=== PATIENT | male | born 1980 | race Caucasian/White ===

== ENCOUNTER → 2016-12-07 | Outpatient (CLI) | payer OTHER ==
[~2016-12-07] MED LIST: CIPRO500 MG PO; FLEXERIL10 MG PO; HYDROCODONE BIT1 T11 PO; LYRICA100 MG PO; LYRICA50 MG PO; MOTRIN800 MG PO; Motrin,Rufen800 MG PO; NORCO 325 MG-51 TAB PO; NORCO 7.5-3251 EACH PO; PHENERGAN W/DM120 ML PO; PREDNICOT10 MG PO; PREDNISONE10 MG PO; PROAIR HFA0.09 MG/AC INH; VALIUM5 MG PO; VIBRAMYCIN100 MG PO; VICODIN ES 7501 TAB PO
== END | disposition home or self-care (01) ==
LOC: RAD 14:58
DX: Z98.1 Arthrodesis status (principal)

== ENCOUNTER → 2017-03-28 | Outpatient (CLI) | payer OTHER | END | disposition home or self-care (01) | LOC: RAD 01:20 | DX: M84.68XS Pathological fracture in other disease, other site, sequela (principal); Q89.8 Other specified congenital malformations; G35 Multiple sclerosis; Z96.643 Presence of artificial hip joint, bilateral ==

== ENCOUNTER → 2018-11-09 | Day surgery (SDC) | payer MEDICARE, MEDICAID ==
[~2018-11-09] VITALS: Ht 167.6 cm; Wt 70.3 kg
[~2018-11-09] MED LIST changes: +ADDERALL15 MG PO; +BRIMONIDINE TART5 ML OPH; +LAMICTAL100 MG PO; +XALATAN 0.005%2.5 ML INTRAOC
--- NOTE | ~2018-11-09 | PROC NOTE ---
[place], [place] PROCEDURE NOTE NAME: CRISTOBAL OJEDA [facility] #: [id number] UNIT #: [id number] ROOM: DOCTOR: ZACHARY AMBROSE MD BIRTHDATE: [birth year] DOS: 11/09/2018 PREOPERATIVE DIAGNOSIS: Right parietal scalp mass. POSTOPERATIVE DIAGNOSIS: Right parietal scalp mass. PROCEDURE: Excision of right parietal scalp mass. SURGEON: Zachary Ambrose M.D. MUSICIAN INSTRUMENTAL: [place]. ANESTHESIA: Local (2 mL of 2% lidocaine with epinephrine). INDICATIONS: This is a 38-year-old gentleman with a history of a right parietal scalp mass, is here for the above-mentioned procedure. The procedure and its complications were explained to the patient in detail. Complications that were discussed included but were not limited to bleeding, infection, hematoma/seroma/abscess formation and prolonged pain. He agreed to proceed. DESCRIPTION OF PROCEDURE: After identifying the patient, the patient was brought to the operating suite and placed in supine position. After timeout was done in the usual fashion, the parts were painted and draped in the usual sterile fashion. Local anesthesia was infiltrated in the marked incision. Incision was made and deepened in layers. The cyst was excised in its entirety with the help of blunt and sharp dissection and sent for histopathological diagnosis. Thereafter, hemostasis was confirmed, the subcutaneous tissue was approximated with the help of 3-0 Vicryl in an interrupted fashion and the edges of the skin were approximated with the help of 4-0 Vicryl in a subcuticular running fashion. Dressing was placed. The patient tolerated procedure well. There were no complications. Dr. Zachary Ambrose, the attending surgeon, was present throughout the operating case. Zachary Ambrose MD CM:PROCNOTE:PROCEDURE NOTE [id number] ZACHARY AMBROSE MD
[2018-11-09 08:28] VITALS: BP 119/68
[2018-11-09 08:40] VITALS: BP 112/78
[2018-11-09 08:46] VITALS: BP 112/81
[2018-11-09 08:51] VITALS: BP 121/87
[2018-11-09 08:56] VITALS: BP 112/75
== END | disposition home or self-care (01) ==
LOC: SDC 11-07 10:15
DX: L72.12 Trichodermal cyst (principal); G35 Multiple sclerosis; Q89.8 Other specified congenital malformations; F17.210 Nicotine dependence, cigarettes, uncomplicated; F12.90 Cannabis use, unspecified, uncomplicated; Z88.0 Allergy status to penicillin; Z79.1 Long term (current) use of non-steroidal anti-inflammatories (NSAID); Z79.899 Other long term (current) drug therapy; Z96.643 Presence of artificial hip joint, bilateral; Z98.890 Other specified postprocedural states; Z83.3 Family history of diabetes mellitus; Z82.49 Family history of ischemic heart disease and other diseases of the circulatory system

== ENCOUNTER 2019-01-23 17:01 | Emergency (ER) | payer MEDICARE, MEDICAID ==
[~2019-01-23] VITALS: Ht 170.1 cm; Wt 65.8 kg
== END 2019-01-23 18:27 | disposition home or self-care (01) ==
LOC: ED 17:01
DX: H57.12 Ocular pain, left eye (principal); F17.200 Nicotine dependence, unspecified, uncomplicated; Z96.641 Presence of right artificial hip joint; Z79.899 Other long term (current) drug therapy; Z88.0 Allergy status to penicillin

== ENCOUNTER → 2019-03-05 | Outpatient (CLI) | payer MEDICARE, MEDICAID ==
--- NOTE | ~2019-03-05 | EKG ---
[place], [place] ELECTROCARDIOGRAM REPORT NAME: CRISTOBAL OJEDA UNIT #: [id number] ROOM: DOCTOR: MANJEET DRAFT REPORT BIRTHDATE: [birth year] [facility] Test Date: 2019-03-05 Test Time: 15:29:53 Pat Name: CRISTOBAL OJEDA Department: Room: Gender: M Focus Puller: SS RESP : 1980 Requested By: YU PAINTING Order Number: [id number] Reading MD: Sg Merchant MD Measurements Intervals [place] Rate: 87 P: 79 WA: 128 QRS: 89 QRSD: 88 T: 68 QT: 369 QTc: 444 Interpretive Statements Sinus rhythm Probable left atrial enlargement Anteroseptal infarct, age indeterminate Electronically Signed On 03-06-2019 4:22:44 PDT by Sg Merchant MD CM:EKGRPT:ELECTROCARDIOGRAM REPORT [id number] UY BURROUGHS DRAFT REPORT YU PAINTING
== END | disposition home or self-care (01) ==
LOC: CARD 15:04
DX: F90.9 Attention-deficit hyperactivity disorder, unspecified type (principal); Z79.899 Other long term (current) drug therapy

== ENCOUNTER 2020-02-26 10:04 | Emergency (ER) | payer OTHER, MEDICAID ==
[~2020-02-26] VITALS: Ht 167.6 cm; Wt 63.5 kg
[2020-02-26 13:35] LABS: BILIRUBIN NEGATIVE (NEGATIVE); BLOOD NEGATIVE (NEGATIVE); CLARITY CLEAR (CLEAR); COLOR YELLOW (YELLOW); GLUCOSE NEGATIVE (NEGATIVE); KETONE NEGATIVE (NEGATIVE); LEUKO ESTERASE NEGATIVE (NEGATIVE); NITRITE NEGATIVE (NEGATIVE); PH 6.5 (5.0-9.0); SPECIFIC GRAVITY 1.015 (1.005-1.030); UROBILINOGEN 0.2 E.U./dl (0.2-1.0)
[2020-02-26 13:36] LABS: BACTERIA TRACE; EPITHELIAL CELLS 0-2; MUCOUS 2+
== END 2020-02-26 13:08 | disposition left against medical advice (07) ==
LOC: ED 10:04
PROVIDERS: Emergency Medicine
DX: S30.22XA Contusion of scrotum and testes, initial encounter (principal); F17.200 Nicotine dependence, unspecified, uncomplicated; Z88.0 Allergy status to penicillin; Z79.899 Other long term (current) drug therapy; X58.XXXA Exposure to other specified factors, initial encounter; Y93.89 Activity, other specified; Y92.89 Other specified places as the place of occurrence of the external cause; Y99.8 Other external cause status

== ENCOUNTER → 2020-09-20 | Outpatient (CLI) | payer OTHER ==
[2020-09-20 11:27] LABS: HEMATOCRIT 47.7 % (42.0-52.0); MEAN CELL VOLUME 91.4 fl (80.0-94.0); MEAN CORPUSCULAR HGB 30.5 pg (27.0-31.0); MEAN CORPUSCULAR HGB CONC 33.3 g/dl (33.0-37.0); MEAN PLATELET VOLUME 10.2 fl (9.6-12.3); RED BLOOD COUNT 5.22 10*6/uL (4.50-5.90); RED CELL DISTRI WIDTH 13.2 % (0-14.5); WHITE BLOOD COUNT 9.6 10*3/uL (4.8-10.8)
[2020-09-20 11:59] LABS: ALBUMIN 3.8 gm/dl (3.1-4.5); ALKALINE PHOSPHATASE 129 U/L (45-117); BUN 12 mg/dl (7-24); CHLORIDE 105 mmol/L (98-107); CHOLESTEROL 151 mg/dL (<200); CREATININE 0.85 mg/dL (0.70-1.30); HDL CHOLESTEROL 65 mg/dl (40-60); LDL CHOLESTEROL 66 mg/dL (9-159); POTASSIUM 4.1 mmol/L (3.5-5.1); SGOT/AST 14 IU/L (3-35); SGPT/ALT 32 U/L (12-78); SODIUM 140 mmol/L (136-145); TOTAL PROTEIN 7.2 gm/dL (6.4-8.2); TRIGLYCERIDES 102 mg/dl (<150); VLDL CHOLESTEROL 20 mg/dL (6-40)
== END | disposition home or self-care (01) ==
LOC: LAB 11:03
PROVIDERS: ATTEND Physician Assistant
DX: Z01.818 Encounter for other preprocedural examination (principal); Q89.8 Other specified congenital malformations; M06.9 Rheumatoid arthritis, unspecified; F34.1 Dysthymic disorder; F17.200 Nicotine dependence, unspecified, uncomplicated; Z79.899 Other long term (current) drug therapy

== ENCOUNTER 2021-01-02 03:40 | Emergency (ER) | payer OTHER ==
[~2021-01-02] VITALS: Ht 167.6 cm; Wt 73.5 kg
[2021-01-02] MEDS ORDERED: CEPHALEXIN500 M1 PO (05:04)
== END 2021-01-02 05:50 | disposition home or self-care (01) ==
LOC: ED 03:40
DX: S90.811A Abrasion, right foot, initial encounter (principal); S97.81XA Crushing injury of right foot, initial encounter; Z88.0 Allergy status to penicillin; Z79.899 Other long term (current) drug therapy; X58.XXXA Exposure to other specified factors, initial encounter; Y93.89 Activity, other specified; Y92.89 Other specified places as the place of occurrence of the external cause; Y99.8 Other external cause status

== ENCOUNTER 2023-03-17 06:24 | Emergency (ER) | payer OTHER ==
[~2023-03-17] VITALS: Ht 167.6 cm; Wt 66.7 kg
[~2023-03-17 06:24] MED LIST changes: +CEPHALEXIN500 M1 PO
[2023-03-17] MEDS ORDERED: VIBRA-TAB100 MG PO (08:00)
== END 2023-03-17 08:06 | disposition home or self-care (01) ==
LOC: ED 06:24
DX: T50.991A Poisoning by other drugs, medicaments and biological substances, accidental (unintentional), initial encounter (principal); H00.011 Hordeolum externum right upper eyelid; H00.012 Hordeolum externum right lower eyelid; F17.200 Nicotine dependence, unspecified, uncomplicated; Z88.0 Allergy status to penicillin; Z98.890 Other specified postprocedural states; Y92.89 Other specified places as the place of occurrence of the external cause

== ENCOUNTER 2023-09-06 02:16 | Emergency (ER) | payer MEDICARE, OTHER ==
[~2023-09-06] VITALS: Ht 167.6 cm; Wt 68.0 kg
[~2023-09-06 02:16] MED LIST changes: +VIBRA-TAB100 MG PO
[2023-09-06] MEDS ORDERED: Sulfamethoxazole/Trimethopri 1 TAB TAB PO ONE (02:40)
[2023-09-06] MEDS ORDERED: SEPTDS PO (02:47)
[2023-09-06] MEDS ORDERED: Tdap Vaccine 0.5 ML SYR (Adult Vaccine) IM ONE (03:05)
== END 2023-09-06 02:55 | disposition home or self-care (01) ==
LOC: ED 02:16
DX: L03.114 Cellulitis of left upper limb (principal); L03.113 Cellulitis of right upper limb; F17.200 Nicotine dependence, unspecified, uncomplicated; Z88.0 Allergy status to penicillin; Z98.890 Other specified postprocedural states

== ENCOUNTER → 2024-02-13 | Outpatient (CLI) | payer MEDICARE, OTHER ==
[~2024-02-13] MED LIST changes: +SEPTDS PO
== END | disposition home or self-care (01) ==
LOC: ORTHO 01:52
PROVIDERS: ATTEND Orthopaedic Surgery
DX: M19.041 Primary osteoarthritis, right hand (principal); R60.0 Localized edema; M79.641 Pain in right hand